=== PATIENT | female | born 1960 | race Asian ===

== ENCOUNTER 2018-05-06 16:29 | Emergency (ER) | payer BC ==
[~2018-05-06] VITALS: Ht 157.5 cm; Wt 57.6 kg
[~2018-05-06 16:29] MED LIST: MOBIC15 MG PO; NOHOMEMEDICATIONS; OMEPRAZOLE 20 M20 M1 PO
[2018-05-06] MEDS ORDERED: IBUPROFEN 800800 MG PO (18:03)
[2018-05-06 18:19] VITALS: BP 151/77
== END 2018-05-06 18:20 | disposition home or self-care (01) ==
LOC: M.ERS 16:29
DX: S83.8X1A Sprain of other specified parts of right knee, initial encounter (principal); S93.692A Other sprain of left foot, initial encounter; K21.9 Gastro-esophageal reflux disease without esophagitis; W10.8XXA Fall (on) (from) other stairs and steps, initial encounter; Y93.89 Activity, other specified; Y92.89 Other specified places as the place of occurrence of the external cause; Y99.8 Other external cause status